=== PATIENT | male | born 1975 | race Caucasian/White ===

== ENCOUNTER 2016-09-19 10:48 | Emergency (ER) | payer SELFPAY ==
[~2016-09-19] VITALS: Ht 190.5 cm; Wt 94.5 kg
[~2016-09-19 10:48] MED LIST: HYDR10TA16 PO; LEVA500T33 PO; METR-1 PO
[2016-09-19 11:11] VITALS: BP 147/96; PULSE 125; RESP 16; TEMP 98.3; O2SAT 96
[2016-09-19] MEDS ORDERED: TETANUS/DIPHTHERIA TOXOID ADULT 0.5 ML VIAL IM ONE (11:45)
[2016-09-19] MEDS ORDERED: SODIUM CHLOR 0.9% 1000 ML INJ 1,000 ML IV ONE (11:45)
[2016-09-19] MEDS ORDERED: LIDOCAINE HCL 1% 50 ML VIAL INFIL ONE (11:45)
[2016-09-19] MEDS ORDERED: AMPICILLIN-SULBACTAM INJ 3 GM in SODIUM CHLORIDE 0.9% INJ 100 ML IV ONE (11:45)
[2016-09-19] MEDS ORDERED: BUPIVACAINE HCL PF 0.5% 10 ML VIAL INFIL ONE (11:45)
--- NOTE | 2016-09-19 11:50 | PD ---
HPI Chief Complaint: Bite or Sting Time Seen by Provider: 11:30 Travel History International Travel<30 days: No Contact w/Intl Traveler<30days: No Traveled to known affect area: No History of Present Illness HPI The patient is a 41-year-old male who presents to the emergency department for dog bite. The patient states he was bit by one of his pit bull dogs at home earlier today after he broke up a fight between the 2 dogs. The patient states the bite affected the third digit of the right hand, resulting in tissue loss at the proximal nailbed. The patient is right-hand dominant. He cannot recall his last tetanus shot. The patient states that his pet dog's immunizations are up-to-date including rabies. He does complain of pain over the affected area which bled initially but is currently stopped. The patient denies any chronic medical problems. PFSH Past Medical History Medical History: Denies Significant Hx Diminished Hearing: No Immunizations Current: Yes Tetanus Vaccination: > 5 Years Influenza Vaccination: No Past Surgical History Appendectomy: Yes Social History Alcohol Use: Yes (3 TIMES A WEEK) Tobacco Use: No Substance Use: No Allergies-Medications (Allergen,Severity, Reaction): Coded Allergies: No Known Allergies (Verified , 09/19/16) Reported Meds & Prescriptions Reported Meds & Active Scripts Active Review of Systems Except as stated in HPI: all other systems reviewed are Neg General / Constitutional: No: Fever Cardiovascular: No: Chest Pain or Discomfort Respiratory: No: Shortness of Breath Gastrointestinal: No: Nausea, Vomiting, Abdominal Pain Musculoskeletal: Positive: Pain Neurologic: No: Paresthesia, Sensory Disturbance Physical Exam Narrative GENERAL: Awake, alert, pleasant 41-year-old male who appears his stated age and is in no acute respiratory distress. SKIN: Warm and dry. Multiple tattoos noted. HEAD: Atraumatic. Normocephalic. EYES: No injection or drainage. ENT: No nasal bleeding or discharge. Mucous membranes pink and moist. NECK: Trachea midline. No JVD. CARDIOVASCULAR: Regular rate and rhythm. No murmur appreciated. RESPIRATORY: No accessory muscle use. Clear to auscultation. Breath sounds equal bilaterally. GASTROINTESTINAL: Abdomen soft, non-tender, nondistended. MUSCULOSKELETAL: Inspection of the third digit right hand reveals the patient has a bite to the distal aspect, resulting in a distal avulsion from the nailbed distally with jagged edges. Mild venous bleeding, no visible arterial bleeding. Small hematoma over the extensor surface of the right hand with visible puncture wound. NEUROLOGICAL: Awake and alert. No obvious cranial nerve deficits. Motor grossly within normal limits. Normal speech. PSYCHIATRIC: Appropriate mood and affect; insight and judgment normal. Data Data Last Documented VS Vital Signs Date Time Temp Pulse Resp B/P Pulse Ox O2 Delivery O2 Flow Rate FiO2 09/19/16 11:11 98.3 125 16 147/96 96 Orders Iv Access Insert/Monitor (09/19/16 11:33) Bupivacaine Pf 0.5% Inj (Marcaine Pf 0.5 (09/19/16 11:45) Lidocaine 1% Inj (50 Ml) (Xylocaine 1% I (09/19/16 11:45) Tetanus/Diphtheria Tox Adult (Tetanus/Di (09/19/16 11:45) Finger ([id number]) (09/19/16 ) Ampicillin-Sulbactam Inj (Unasyn Inj) (09/19/16 11:45) Sodium Chlor 0.9% 1000 Ml Inj (Ns 1000 M (09/19/16 11:45) MDM Medical Decision Making Medical Screen Exam Complete: Yes Emergency Medical Condition: Yes Medical Record Reviewed: Yes Interpretation(s) X-ray of the finger reveals avulsion of the distal tuft of the little finger with both soft tissue and bony injury. Differential Diagnosis Differential diagnosis includes dog bite, partial amputation, open fracture, tuft fracture, infected wound. Narrative Course A digital block was performed of the third digit, right hand, with Marcaine and lidocaine. X-ray of the third digit right hand was obtained. The patient's tetanus shot was updated and the patient was administered Unasyn 3 g intravenously. X-ray does reveal fracture of the distal phalanx, third digit, right hand. I discussed the patient with a hand surgeon, Dr. Thomas, 12:15 PM who will evaluate the patient's x-rays for definitive management. The patient' s wound was evaluated by Dr. Thomas in the emergency department and sutured with a flap by Dr. Thomas in the emergency department. The patient will be placed in a sling and is advised to follow-up with Dr. Thomas on in his office. Medications as directed. Physician Communication Physician Communication I discussed the patient with the on-call hand surgeon, Dr. Thomas, 12:15 PM. Diagnosis Primary Impression: Dog bite of finger Qualified Code: S61.259A - Dog bite of finger, initial encounter Additional Impression: Open fracture of distal phalanx of digit of right hand Referrals: Rose Thomas MD 3 days Follow-up with Dr. Thomas on in the office Patient Instructions: General Instructions Additional Instructions: Follow-up with Dr. Thomas on . Sling as directed. Medications as directed. Med/Other Pt SpecificInfo: Prescription(s) given Scripts Amoxicillin-Clavulanate (Augmentin)500-125 mg [id number] Mg PO Q8H 7 Days Ref 0 Prov:Shahram Mendes MD 09/19/16 Hydrocodone-Acetaminophen ([place])5-325 mg Tab1 Tab PO Q6H PRN (PAIN) #12 TAB Ref 0 Prov:Shahram Mendes MD 09/19/16 Ibuprofen 800 Mg [id number] Mg PO Q8H PRN (PAIN SCALE 1 TO 10) #20 TAB Ref 0 Prov:Shahram Mendes MD 09/19/16 Disposition: 01 DISCHARGE HOME Condition: Stable Shahram Mendes MD Sep 19, 2016 11:50
--- NOTE | 2016-09-19 12:23 | RADHPO ---
EXAM DATE/TIME: 09/19/2016 11:36 [facility] COMPARISON: No previous studies available for comparison. INDICATIONS : Right 3rd digit pain after dog bite MEDICAL HISTORY : None. SURGICAL HISTORY : None. ENCOUNTER: Initial ACUITY: 1 day PAIN SCORE: 9/10 LOCATION: Right 3rd digit FINDINGS: Examination of the third digit of the right hand demonstrates avulsion of the distal tuft of the midd le finger. Underlying bony tuft is also irregular and demonstrates a mild fracture. CONCLUSION: Avulsion of the distal tuft of the little finger with both soft tissue and bony injur y. Ilir Rodriguez MD on September 19, 2016 at 12:13 Board Certified Radiologist. This report was verified electronically.
[2016-09-19] MEDS ORDERED: IBUP800T23 PO (15:07)
[2016-09-19] MEDS ORDERED: NORC5TAB PO (15:07)
[2016-09-19] MEDS ORDERED: AUGM500T7 PO (15:07)
--- NOTE | 2016-09-19 15:50 | MB ---
cc: JENY MCGEE M.D. DATE OF CONSULTATION 09/19/2016 REQUESTING PHYSICIAN The patient is being seen at the request of Dr. Shahram Mendes REASON FOR CONSULTATION Dog bite to the right third finger. HISTORY OF PRESENT ILLNESS The patient is a 41-year-old male who presented today to the emergency room complaining of a dog bite. The patient was apparently breaking up a fight by his two pitbulls and one of them bit the tip of his right third finger completely off. Consultation is requested regarding evaluation and treatment of this injury. PAST MEDICAL HISTORY The patient is otherwise well. ALLERGIES None. MEDICATIONS None. REVIEW OF SYSTEMS Negative in detail for 12 systems although he is experiencing local pain. He denies high blood pressure, diabetes, heart disease, kidney disease, liver disease or diseases of infectious etiology. SOCIAL HISTORY Does not use tobacco, he quit 20 years ago. PAST SURGICAL HISTORY Significant for appendectomy. PHYSICAL EXAMINATION GENERAL: On examination the patient is sitting comfortably on the stretcher. VITAL SIGNS: His temperature is 98.3. Pulse was 125, respirations 16, blood pressure is 147/96 with a pulse oximetry of 96% on room air. HEENT: His extraocular muscles are intact. His pupils are equal, round, reactive to light. His mouth is clear. NECK: His neck is supple without masses. LUNGS: Clear. CARDIOVASCULAR: His heart has regular rate and rhythm. EXTREMITIES: Examination of his upper extremities reveals a complete amputation transversely of the tip of his right third finger. The tissue around it appears to be viable. The bone was exposed. IMAGING Review of the x-rays, the x-ray reveals a loss of soft tissue. The finger appears to be amputated toward the distal end of the finger, only part of the tuft as been removed. The remainder of the bones appear to be intact. IMPRESSION The patient has an amputation to the tip of his right third finger. PLAN The options are discussed with the patient. We will do a local debridement in the emergency room, and attempt to close it primarily with a V-Y advancement flap as needed. The patient understands and accepts the risks and complications of the surgery and understands the procedure. Jeny Mcgee MD [facility] /2:18 PM /2:36 PM
[2016-09-19 16:03] VITALS: BP 132/80
--- NOTE | 2016-09-21 17:21 | MP ---
cc: JENY MCGEE M.D. DATE OF SURGERY: 09/19/2016 PREOPERATIVE DIAGNOSIS: Amputation to the tip of the right third finger. POSTOPERATIVE DIAGNOSIS: Amputation to the tip of the right third finger. OPERATION: 1. Excisional debridement of skin, subcutaneous tissue and bone to the right third finger. 2. Closure of wound of right third finger with V-Y advancement flap. ANESTHESIA: Local. SURGEON: Dr. Mcgee. INDICATIONS: The patient is a 41 year-old male who injured the tip of his right third finger when his dogs were in a fight, that he was trying to break up, bit the tip of his right third finger off. FINDINGS: At the completion of the procedure, the flap was advanced approximately 1 cm, and had complete coverage of the bone that was under no tension. In addition when the tourniquet was removed, there was excellent perfusion. Operative time was approximately 45 minutes. PROCEDURE: The patient was seen in the emergency room where the operation was performed. His right hand was anesthetize with bupivacaine then draped in the usual sterile fashion using Betadine. Once the anesthetic had taken effect the wound was debrided including the skin, subcutaneous tissue and the bone. The bone was removed with a rongeur. The wound was then copiously irrigated with saline and scrubbed. Attempt was made to advance the tissues without using the V-Y advancement flap and it did appear slightly short. The decision was made to do the flap after examining the wound and the viability of the soft tissue as well as the extent of the injury. The V-Y advancement flap was designed and cut with a #15 blade down through the skin, down to the fascial attachments. The fascial attachments were then divided under loupe magnification which gave easy advancement over the wound. The flap was then attached to the soft tissue of the nail bed and periosteum of the bone dorsally using 5-0 nylon suture material. Once the wound was closed the tourniquet was removed after 45 minutes of tourniquet time, pressure was applied after several minutes there was no evidence of any significant bleeding. A dressing was applied using povidone-iodine ointment, Adaptic Telfa, 4x4s and Ban. The patient was then given back to the care of the emergency room for disposition. The patient is to follow up in 72 hours in my clinic. In addition he will be prescribed several days or a full course of antibiotics. This was discussed with Dr. Garcia. He will also be given 800 milligrams of ibuprofen every 8 hours for pain as well as [place] as needed. MD GALINA Lamb/[facility] /2:22 PM /3:59 PM
== END 2016-09-19 16:04 | disposition home or self-care (01) ==
LOC: PHED 10:48
DX: S61.352A Open bite of right middle finger with damage to nail, initial encounter (principal); S62.662A Nondisplaced fracture of distal phalanx of right middle finger, initial encounter for closed fracture; W54.0XXA Bitten by dog, initial encounter; Y93.89 Activity, other specified; Y92.009 Unspecified place in unspecified non-institutional (private) residence as the place of occurrence of the external cause; Z23 Encounter for immunization
CPT/HCPCS: 14040; 73140; 90471; 90714; 96361; 96365; 99284; J0295; J7030